=== PATIENT | female | born 1970 | race Two or more races ===

== ENCOUNTER 2024-01-03 12:14 | Emergency (ER) | payer OTHER ==
[~2024-01-03] VITALS: Ht 160 cm; Wt 68.0 kg
[2024-01-03] MEDS ORDERED: DEXAMETHASONE SODIUM PHOSPHATE 4 MG/ML VIAL ONE (13:55)
[2024-01-03] MEDS ORDERED: KETOROLAC TROMETHAMINE 30 MG VIAL ONE (13:55)
[2024-01-03] MEDS ORDERED: KETOROLAC TROMETHAMINE 30 MG VIAL IM ONE (14:00)
[2024-01-03] MEDS ORDERED: DEXAMETHASONE SODIUM PHOSPHATE 4 MG/ML VIAL IM ONE (14:00)
[2024-01-03 14:24] LABS: HEMATOCRIT 39.2 % (36.0-45.00); MEAN CELL VOLUME 87.9 fL (80.00-100.00); MEAN CORPUSCULAR HEMOGLOBIN 29.2 pg (27.00-32.0); MEAN CORPUSCULAR HGB CONC 33.1 g/dl (32.0-36.0); PLATELET COUNT 292 K/uL (150-450); RED BLOOD COUNT 4.46 M/uL (4.00-6.00); RED CELL DISTRIBUTION WIDTH 13.3 % (11.5-14.5)
[2024-01-03 14:46] LABS: CALCIUM 9.6 mg/dL (8.5-10.1); CREATININE SERUM 1.03 mg/dL (0.55-1.02); GFR 55.63; POTASSIUM 4.12 mEq/L (3.5-5.1)
== END 2024-01-03 16:16 | disposition home or self-care (01) ==
LOC: ER 12:15
PROVIDERS: General Practice
DX: H01.003 Unspecified blepharitis right eye, unspecified eyelid (principal); Z88.8 Allergy status to other drugs, medicaments and biological substances